=== PATIENT | female | born 1975 | race Caucasian/White ===

== ENCOUNTER 2019-11-27 08:38 | Outpatient (CLI) | payer BC, OTHER | END 2019-11-27 08:39 | disposition home or self-care (01) | LOC: LABHHL 08:38 | PROVIDERS: ATTEND Surgery | DX: N60.02 Solitary cyst of left breast (principal) | CPT/HCPCS: 88112 ==

== ENCOUNTER 2020-09-06 13:50 | Outpatient (CLI) | payer BC ==
--- NOTE | 2020-09-06 15:47 | Mammography Report ---
DIGITAL SCREENING MAMMOGRAM WITH TOMOSYNTHESIS WITH CAD, 09/06/2020 CLINICAL INFORMATION / INDICATION: Routine Screening Mammography. TECHNIQUE: Digital bilateral 2D and 3D mammography with tomosynthesis was obtained in the craniocaud al and mediolateral oblique projections. Computer-Aided Detection (CAD) analysis was used for interp retation of this study. COMPARISON: 03/13/2016 FINDINGS: Breast Density: The breasts are heterogeneously dense, which may obscure small masses. No dominant mass, suspicious calcifications, or architectural distortion in either breast. Benign-appearing changing nodularity is again seen on the left. IMPRESSION: No mammographic evidence of malignancy. Follow up recommendation: Routine yearly BI-RADS Category 2: Benign. A "normal" or negative report should not discourage follow up or biopsy of a clinically significant f inding. A written summary of these findings will be mailed to the patient. The patient will be entered into a mammography reporting system which will generate a reminder letter for the patient's next appointmen t at the appropriate interval. The [employer] recommends yearly mammograms starting at age 40 and continuing as l guzman as a woman is in good health. Breast MRI is recommended for women with an approximate 20-25% or greater lifetime risk of breast cancer, including women with a strong family history of breast or ova romain cancer or who have been treated for Hodgkin's disease. Signer Name: Suhas Nelson MD Signed: 09/06/2020 3:43 PM Workstation Name: [id number]
== END 2020-09-06 13:51 | disposition home or self-care (01) ==
LOC: SPVWC 13:50
PROVIDERS: ATTEND Surgery
DX: Z12.31 Encounter for screening mammogram for malignant neoplasm of breast (principal); N63.20 Unspecified lump in the left breast, unspecified quadrant
CPT/HCPCS: 77063; 77067